=== PATIENT | male | born 2005 | race Caucasian/White ===

== ENCOUNTER 2024-05-29 10:28 | Emergency (ER) | payer MEDICAID ==
[~2024-05-29] VITALS: Ht 182.9 cm; Wt 142.7 kg
[~2024-05-29 10:28] MED LIST: ARIP2TAB20 PO; CLON-529 PO; GUAN2TAB14 PO; LISD40CA PO; MELA3TAB39 PO
[2024-05-29 10:44] LABS: BASOPHILS % (AUTO) 0.5 % (0-1); EOSINOPHILS # (AUTO) 0.1 X10'3 (0-0.9); EOSINOPHILS % (AUTO) 1.6 % (0-6); HEMATOCRIT 43.2 % (42.0-52.0); HEMOGLOBIN 14.4 g/dl (14.0-17.9); LYMPHOCYTES # (AUTO) 2.8 X10'3 (1.1-4.8); LYMPHOCYTES % (AUTO) 40.9 % (21-51); MEAN CORPUSCULAR HEMOGLOBIN 28.4 PG (27.0-31.0); MEAN CORPUSCULAR HGB CONC 33.3 g/dL (33.0-36.5); MEAN CORPUSCULAR VOLUME 85.2 FL (78-98); MEAN PLATELET VOLUME 7.5 FL (7.4-10.4); MONOCYTES # (AUTO) 0.5 X10'3 (0-0.9); MONOCYTES % (AUTO) 6.8 % (2-12); NEUTROPHILS # (AUTO) 3.5 X10'3 (1.8-7.7); NEUTROPHILS % (AUTO) 50.2 % (42-75); PLATELET COUNT 307 X10'3 (140-440); RED BLOOD COUNT 5.07 X10'6 (4.70-6.10); RED CELL DISTRIBUTION WIDTH 13.1 % (11.5-14.5); WHITE BLOOD COUNT 6.9 X10'3 (4.5-11.0)
[2024-05-29 11:05] LABS: ALBUMIN 3.7 G/DL (3.4-5.0); ANION GAP 8 (8-16); BLOOD UREA NITROGEN 14 MG/DL (7-18); BUN/CREATININE RATIO 14.9 (10.0-20.0); CALCIUM 9.3 MG/DL (8.5-10.1); CHLORIDE 102 MMOL/L (99-107); CREATININE 0.94 MG/DL (0.60-1.10); GLUCOSE 91 MG/DL (70-104); SODIUM 137 MMOL/L (135-145); TOTAL CARBON DIOXIDE 27.3 MMOL/L (24-32); eCRCL 139 ML/MIN; eGFR > 90 ML/MIN
[2024-05-29 11:07] LABS: PRO BRAIN NATRIURETIC PEPTIDE < 30 PG/ML (0-125)
[2024-05-29] MEDS: ketorolac trometh. 30mg/ml inj. IM ONE (12:18)
[2024-05-29 12:21] VITALS: BP 130/105; PULSE 100; RESP 14; TEMP 98.8; O2SAT 96
== END 2024-05-29 12:24 | disposition home or self-care (01) ==
LOC: ER 10:28
DX: R07.9 Chest pain, unspecified (principal); F41.9 Anxiety disorder, unspecified; F20.9 Schizophrenia, unspecified; Z79.899 Other long term (current) drug therapy
CPT/HCPCS: 36415; 71045; 80048; 83880; 84484; 85025; 93005; 96372; 99285; J1885